=== PATIENT | female | born 1980 | race Caucasian/White ===

== ENCOUNTER → 2019-02-16 | Outpatient (CLI) | payer OTHER ==
--- NOTE | 2019-02-16 14:57 | 2DMMODE ---
[facility] [place] [address] 2 D/M-MODE ECHOCARDIOGRAM Name: RADHA ANGELO Room #: REG [facility] [id number] ������������� Admission: 02/16/19 ������������� Attend Phys: Dayron Corrigan Discharge: ��� ������������� ��� Date of : 78 Date of Service: 02/16/19 1457 �� Report #: [id number] �������� ��������������������������������������������[id number] THIS REPORT FOR: //name// APPROVED REPORT Study performed: 02/16/2019 13:15:34 EXAM: Comprehensive 2D, Doppler, and color-flow Echocardiogram Patient Location: Out-Patient Status: routine BSA: 1.81 HR: 63 bpm BP: 100/64 mmHg Rhythm: NSR Other Information Study Quality: Fair Technically limited study due to breast implants. Indications Atrial Fibrillation 2D Dimensions RVDd: 41.80 mm IVSd: 7.64 (7-11mm) LVOT Diam: 20.10 (18-24mm) LVDd: 41.46 mm PWd: 9.10 (7-11mm) Ascending Ao: 33.54 (22-36mm) LVDs: 26.41 (25-40mm) Aortic Root: 35.92 mm Volumes Left Atrial Volume (Systole) Single Plane 4CH: 34.49 mL Aortic Valve AoV Peak Robert.: 1.14 m/s AO Peak Gr.: 5.17 mmHg LVOT Max P.23 mmHg LVOT Max V: 1.03 m/s JALIL Vmax: 2.87 cm2 Mitral Valve E/A Ratio: 1.7 MV Decel. Time: 162.18 ms [facility] [address] [place] [address] 2 D/M-MODE ECHOCARDIOGRAM Name: RADHA ANGELO Room #: REG ANA Mccarthy#: [id number] ������������� Admission: 02/16/19 ������������� Attend Phys: Dayron Frances [facility] Discharge: ��� ������������� ��� Date of : 78 Date of Service: 02/16/19 1457 �� Report #: [id number] �������� ��������������������������������������������[id number] MV E Max Robert.: 0.68 m/s MV A Robert.: 0.39 m/s MV PHT: 47.03 ms IVRT: 73.82 ms Pulmonary Valve PV Peak Robert.: 0.65 m/s PV Peak Gr.: 1.71 mmHg Pulmonary Vein P Vein S: 0.41 m/s P Vein D: 0.49 m/s P Vein S/D Ratio: 0.84 Tricuspid Valve TR Peak Robert.: 2.24 m/s RAP Estimate: 5.00 mmHg TR Peak Gr.: 20.10 mmHg PA Pressure: 25.00 mmHg Left Ventricle The left ventricle is normal size. LV segmental wall motion is grossly normal. There is normal left ventricular wall thickness. Left ventricular systolic function is normal. LVEF is 55-60%. The left ventricular diastolic function is normal. Right Ventricle The right ventricle is normal size. The right ventricular systolic function is normal. Atria The left atrium size is normal. The right atrium size is normal. Aortic Valve The aortic valve is normal in structure. No aortic regurgitation is present. There is no aortic valvular stenosis. Mitral Valve The mitral valve is normal in structure. Trace mitral regurgitation. Tricuspid Valve The tricuspid valve is normal in structure. Mild tricuspid regurgitation. Estimated PAP is 25mmHg. Pulmonic Valve The pulmonary valve is normal in structure. Trace pulmonic [facility] [address] [place] [address] 2 D/M-MODE ECHOCARDIOGRAM Name: PETEYRADHA Room #: SONIA Mccarthy#: [id number] ������������� Admission: 02/16/19 ������������� Attend Phys: [facility] Discharge: ��� ������������� ��� Date of : 78 Date of Service: 02/16/19 1457 �� Report #: [id number] �������� ��������������������������������������������[id number] regurgitation. Great Vessels The aortic root is normal in size. The ascending aorta is normal in size. IVC is normal in size and collapses >50% with inspiration. Pericardium There is no pericardial effusion. <Conclusion> The left ventricle is normal size. LVEF is 55-60%. The aortic valve is normal in structure. The mitral valve is normal in structure. Trace mitral regurgitation. The tricuspid valve is normal in structure. Mild tricuspid regurgitation. Estimated PAP is 25mmHg. The pulmonary valve is normal in structure. Trace pulmonic regurgitation. There is no pericardial effusion. ��������������������������������������������� <ELECTRONICALLY SIGNED> ���������������������������������������� By: Alcon Olivarez MD ��������������������������������������������� 02/16/19 1457 1457 1457 Alcon Olivarez MD /INF
== END ==
LOC: CV 06:22
DX: I07.1 Rheumatic tricuspid insufficiency (principal); I48.91 Unspecified atrial fibrillation; Z88.1 Allergy status to other antibiotic agents